=== PATIENT | female | born 1960 | race Caucasian/White ===

== ENCOUNTER 2018-02-03 05:27 | Day surgery (SDC) | payer OTHER, SELFPAY ==
--- NOTE | 2018-02-02 12:36 | EKG12_ITS ---
Test Reason : PRE OP Blood Pressure : / mmHG Vent. Rate : 081 BPM Atrial Rate : 081 BPM P-R Int : 146 ms QRS Dur : 080 ms QT Int : 394 ms P-R-T Axes : 009 038 034 degrees QTc Int : 457 ms Normal sinus rhythm Normal ECG Confirmed by SHAYNA ORTEGA, ABENA ([id number]), health editor MARISA COPELAND ([id number]) on 02/05/2018 12:50:46 PM Referred By: Nic Fuentes Confirmed By:ABENA CORRAL MD
[2018-02-02 13:13] LABS: Hematocrit 31.3 % (37-47); Hemoglobin 9.8 g/dl (12.0-15.0); Mean Corp Hgb Conc 31.3 g/gl (32-36); Mean Corpuscular Hgb 18.8 pg (27.0-32.0); Mean Corpuscular Volume 60.1 fL (81-99); Platelet Count 217 K/mm3 (150-450); RBC Distribution Width CV 15.7 % (11.6-14.6); RBC Distribution Width SD 33.8 fl (35.1-43.9); Red Blood Count 5.21 M/mm3 (4.2-5.4); White Blood Count 7.1 K/mm3 (4.4-11.0)
[2018-02-02 13:19] LABS: BUN 10 mg/dL (7-18); Creatinine, Serum 0.57 mg/dL (0.55-1.02); Glucose 97 mg/dL (74-106)
[2018-02-02 13:20] LABS: Anion Gap 7 (5-15); BUN/Creat Ratio 17.6 RATIO (10-20); Calcium,Total 8.9 mg/dL (8.5-10.1); Chloride 105 mmol/L (98-107); EST Glomerular Filtration Rate 118 mL/min (>60); Est Glom Filt Rate - Afr Amer 142 mL/min (>60); Scan Indicated on CBC? Y/N YES- FLAGS NOTED; Sodium Level 139 mmol/L (136-145)
[2018-02-03] VITALS (13 sets, daily range): BP systolic 103–134; BP diastolic 74–91; PULSE 68–100; RESP 16; TEMP 36–37.1; O2SAT 93–98; BMI 29.2
--- NOTE | 2018-02-03 07:07 | DCINST_ITS ---
Discharge Diet: No Restrictions Discharge Activity: Return to Normal Activity, May Not Drive - while you are taking narcotic pain medications. Do not drive, work with heavy equipment or sign legal documents for 24 hours after your surgery. Additional Dressing/Incision Instructions:: Sitz baths as needed for hygiene and comfort. You may remove the vaseline gauze tomorrow. High fiber diet and daily fiber supplement. Mineral oil 30cc daily for 1 week. Dibucaine ointment may be used each 2 hour as needed Allergies/Adverse Reactions: Allergies azithromycin [From Zithromax] Adverse Reaction (Verified 01/27/18 08:24) Nausea Medications to take at Discharge Multivitamins,Therapeutic [Multivitamin] 1 tab PO DAILY 04/28/16 estradiol 10 mcg vaginal tablet 10 mcg VAGINAL .COMPLEX #24 tab 10/06/17 lisinopril 10 mg tablet 10 mg PO QDAY 10/06/17 ferrous sulfate 325 mg (65 mg iron) tablet 65 mg PO DAILY tab 01/15/18 Hydrocodone Bitart/Apap 5-325 [[place] 5MG-325MG] 1 tablet PO Q6H PRN PRN 3 Days # 10 tablet 02/03/18 Metronidazole 250 mg PO TID #15 tab 02/03/18 The following prescriptions were given: Hydrocodone Bitart/Apap 5-325 [[place] 5MG-325MG] 1 tablet PO Q6H PRN PRN 3 Days # 10 tablet PRN Reason: Pain Metronidazole 250 mg PO TID #15 tab Primary Care Physician: Mylene Valdivia MD [Primary Care Provider] - Please Follow Up With: Nic Fuentes MD - [phone] When: Plan to have a follow up approximately 2 weeks after surgery.
--- NOTE | 2018-02-03 07:15 | FIST_PTH ---
PATIENT: HADLEY MUNIZ LOC: [facility] [place] U#:[id number] AGE/SX: 57/F ROOM: RE02/03/[address]: Dr. Nic Fuentes MD : [id number] BED: DIS: 02/03/2018 SPEC #: [id number] RECD: 02/03/18 10:18 STATUS: CHARISSE REYNAGAKiel #: [id number] MANUEL: 02/03/18 07:[address]: Nic Fuentes DEPT: SURGICAL PATHOLOGY RECD BY: Bob Kearney ENTERED: 02/03/18 10:44 SP TYPE: Fistula OTHR DR: Dr. Mylene Valdivia MD Tissues: A - Anal region B - HEMORRHOIDS Procedures: Surgery Specimen Level III HEADER OPERATION: Colonoscopy PRE-OP DIAGNOSIS: Left lateral fistula TISSUE SUBMITTED: A ? Fistula, B - Hemorrhoid MICROSCOPIC DIAGNOSIS A. Fistula, not further specified, excision: Squamous mucosa with associated acute and chronic inflammation and granulation and focal hyperkeratosis. B. Hemorrhoid, not further designated, hemorrhoidectomy: Submucosal vascular ectasia and thrombosis consistent with hemorrhoid. AM:layne 02/04/18 COMMENT A. The lesion may represent a fistula. Clinical correlation is suggested. MICROSCOPIC DESCRIPTION Slides are reviewed. GROSS DESCRIPTION A - Received in fixative is one container labeled with the patient's name and designated fistula. The specimen consists of four variable size pieces of pink, congested mucosal tissue measuring in aggregate 3 x 2.5 x 1 cm. No mass lesion is identified. A polypoid piece of estevez-pink soft tissue is noted at one edge measuring 0.5 x 0.2 x 0.2 cm. This area is inked black. No other mass lesion is identified. [employer] sections are submitted in one cassette. B - Received in fixative is one container labeled with the patient's name and designated hemorrhoid. The specimen consists of a piece of pink mucosal tissue measuring 3 x 1 x 1 cm. Sections reveal congested and hemorrhagic cut surfaces. The entire specimen is submitted in one cassette. / SJ:layne 02/03/18 TC:3 CPT: 49683 x2
[2018-02-03] MEDS: Clindamycin 900 MG/50 ML BAG 75 MG IV (07:16)
[2018-02-03] MEDS: Bupivacaine Mpf 0.5% 30 ML VIAL (07:51)
[2018-02-03] MEDS: Lubricating Jelly 60 GM Tube 30 GM TOPICAL (07:51)
[2018-02-03] MEDS: BUPIVACAINE LIPOSOME/PF 20 ML VIAL OPERA.SITE (08:30)
[2018-02-03] MEDS: Dibucaine 30 GM Tube 1 APPLIC (08:34)
--- NOTE | 2018-02-03 08:42 | PCM.OPRPT ---
Problem List (1) Anal fistula Status: Acute Report of Operation Date of Procedure: 02/03/18 Pre-Operative Diagnosis: Left lateral fistula in ano Post-Operative Diagnosis: Left lateral fistula in ano. Anterior anal fissure. Right posterior lateral hemorrhoid. Sigmoid and descending colon diverticulosis Surgery/Procedure Performed:: Colonoscopy. Examination under anesthesia. Anal fistulotomy. Anal fissurectomy. Surgical hemorrhoidectomy. Description of Surgical Findings:: Time out and informed consent was obtained. 57-year-old female was taken to the operating room. She was placed in a left lateral decubitus position. Throughout the procedure she underwent monitored anesthesia care. She has a family history of the father had rectal cancer. The patient's most recent colonoscopy was approximately 8 years prior. Digital rectal exam performed. There is evidence of a punctate draining site left lateral anus and there was anterior excoriation and scar tissue. There was right posterior lateral exuberant internal hemorrhoidal disease. Flexible colonoscope inserted the rectum advanced to a tortuous sigmoid colon extensively involved with diverticulosis the scope was then advanced through the transverse colon and was then nicely advanced to the cecum. Bowel prep was good. The cecum ileocecal valve was nicely achieved. The scope was then carefully withdrawn from the ascending transverse descending and sigmoid colon. There was extensive diverticulosis of the descending and sigmoid colon but I did not see any evidence of acute inflammatory change. The scope was withdrawn to the rectum retroflex there was evidence of significant internal hemorrhoid disease and hypertrophic papillae. No evidence of active bleeding. The procedure was completed with the patient tolerating it well. Impression Sigmoid and descending colon diverticulosis. Next colonoscopy recommended in 5 years because of direct family history Scope insertion time 0723. Cecum was reached at 0729. The procedure was completed at 0736 The patient was then placed prone on the operating table in the jackknife position. The perianal area was prepped with Betadine. 0.5% Marcaine was used as a local anesthetic. 2 cc of Marcaine was used. There is evidence of a punctate defect left lateral to the anus slightly anteriorly. 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 I then injected hydrogen peroxide despite multiple attempts could not detect a did precise internal site. I then used a lacrimal duct probe and again it wanted to track in a curvilinear fashion anteriorly but I could not detect the internal site. There is evidence of a very scarred anterior fissure. There was exuberant papilla in that area and there was a very large right posterior lateral internal hemorrhoid. With sharp scalpel dissection I excised the anterior tissue scarred and fixed with the fissure. I used a harmonic scalpel to excise this and the sphincter mechanism was absolutely clearly identified and protected. I perform the dissection internally so as to completely remove the fissure and then I obtained hemostasis by placing a [id number] suture of 2-0 chromic proximally. I then incised over the lacrimal duct probe and detected that there was granulation tissue that curved medially. This appeared to be superficial to the sphincter and I was able to incise and then debride that tissue sharply and with electrocautery. At this point I elected to leave that tissue open. There was a very large right posterior lateral internal hemorrhoid I did elect to treat that on this occasion. I placed an apical suture of 2-0 chromic then I used a harmonic scalpel to excise that tissue I approximated the mucosa with a 2-0 chromic. Hemostasis was nicely intact. The right posterior lateral defect was nicely closed. The anterior and anterior left lateral defect was left open. This was a significant debridement in this area. I used 20 cc of Exparel in the operative area to provide postoperative relief. I used dibucaine soaked Vaseline gauze since inserted that then placed dry cover draws externally. Sponge instrument and needle counts were reported to the surgeon for correct. Blood loss was minimal. Specimen includes the fissure as well as the granulation tissue and fistula tract. It also included the hemorrhoidal tissue. Drains none. Blood loss minimal The patient was taken to recovery room in satisfactory condition Nic Fuentes M.D., F.A.C.S.
[2018-02-03] MEDS: HYDROcodone Bitartrate/Apap 5/325 Tablet PO (11:23)
== END 2018-02-03 14:03 | disposition home or self-care (01) ==
LOC: SDC 05:29 → AC 05:30
PROVIDERS: Family Provider Family Medicine; PCP Family Medicine; Visit Provider Surgery
PROC: 0DJD8ZZ Inspection of Lower Intestinal Tract, Via Natural or Artificial Opening Endoscopic (ICD-10-PCS; CPT 45378; principal; 2018-02-03 07:00)
PROC: (CPT 45378; 2018-02-03 07:00)
DX: K60.3 Anal fistula (principal); K57.30 Diverticulosis of large intestine without perforation or abscess without bleeding; K60.2 Anal fissure, unspecified; K64.8 Other hemorrhoids; I10 Essential (primary) hypertension; D64.9 Anemia, unspecified; Z80.0 Family history of malignant neoplasm of digestive organs; Z87.891 Personal history of nicotine dependence
CPT/HCPCS: 45378; 46257; 36415; 80048; 85027; 88304; 93005; J7120; J2405

== ENCOUNTER → 2018-06-30 15:28 | Outpatient (CLI) | payer OTHER, SELFPAY | PROVIDERS: Family Provider Family Medicine; PCP Family Medicine; Visit Provider Nurse Practitioner Women's Health | DX: Z12.31 Encounter for screening mammogram for malignant neoplasm of breast (principal) | CPT/HCPCS: 77063; 77067 ==

== ENCOUNTER → 2019-02-04 10:39 | Outpatient (CLI) | payer OTHER, SELFPAY ==
[2018-06-22 14:07] VITALS: BMI 30.4
[2019-02-04 13:00] LABS: Anion Gap 5 (5-15); BUN 12 mg/dL (7-18); BUN/Creat Ratio 19.1 RATIO (10-20); Calcium,Total 9.2 mg/dL (8.5-10.1); Chloride 110 mmol/L (98-107); Cholesterol 250 mg/dL (200); Creatinine, Serum 0.63 mg/dL (0.55-1.02); EST Glomerular Filtration Rate 104 mL/min (>60); Est Glom Filt Rate - Afr Amer 126 mL/min (>60); Glucose 89 mg/dL (74-106); High Density Lipoprotein 49 mg/dL; Potassium 4.2 mmol/L (3.5-5.1); Sodium Level 144 mmol/L (136-145); Triglycerides 135 mg/dL; Very Low Density Lipoprotein 27 mg/dL (5-40)
== END ==
PROVIDERS: Family Provider Family Medicine; PCP Family Medicine; Referring Provider Family Medicine; Visit Provider Family Medicine
DX: I10 Essential (primary) hypertension (principal)
CPT/HCPCS: 36415; 80048; 80061

== ENCOUNTER → 2019-07-06 12:55 | Outpatient (CLI) | payer OTHER, SELFPAY ==
[2019-06-23 08:22] VITALS: BMI 30.4
--- NOTE | 2019-07-06 13:01 | BI_ITS ---
MAMMOGRAPHY - BILATERAL SCREENING REASON FOR EXAM: Female, 58 years old. Routine annual screening examination. PERTINENT HISTORY: Non-contributory. TECHNIQUE: Digital bilateral breast lizandro (3D mammographic acquisition) in the CC and MLO projections. 2-D mediolateral oblique (MLO) and craniocaudad (CC) views of both breasts were obtained. CAD: Full Field Digital Mammography with Computer Added Detection was performed. COMPARISON: Comparison is made with prior study dated June 30, 2018. FINDINGS: Breast Composition: There are scattered areas of fibroglandular density. There are no dominant masses or suspicious calcifications. No other significant abnormalities are identified. There has been no significant change since the prior study. BI/SCREEN MAMM (CAD) W/LIZANDRO BILAT IMPRESSION: Stable bilateral screening mammogram. Yearly follow-up mammogram recommended. (A) ASSESSMENT CATEGORY: BIRADS Category 1: Negative. A letter regarding these results will be sent to the patient by the facility within 30 days. Approximately 10% of breast cancers are not detected by mammography. A normal mammogram should not delay biopsy of a clinically suspicious abnormality. [id number] Electronically Signed: Sabas Barton, at 10:39 EDT , Service support ,
== END ==
PROVIDERS: Family Provider Family Medicine; PCP Family Medicine; Referring Provider Nurse Practitioner Women's Health; Visit Provider Nurse Practitioner Women's Health
DX: Z12.31 Encounter for screening mammogram for malignant neoplasm of breast (principal)
CPT/HCPCS: 77063; 77067

== ENCOUNTER → 2020-07-05 12:52 | Outpatient (CLI) | payer OTHER, SELFPAY ==
[2020-07-05 10:22] VITALS: BMI 30.4
[2020-07-09 08:02] LABS: HPV APTIMA, High Risk Negative (Negative)
== END ==
PROVIDERS: PCP Family Medicine; Referring Provider Nurse Practitioner Women's Health; Visit Provider Nurse Practitioner Women's Health
DX: Z12.4 Encounter for screening for malignant neoplasm of cervix (principal)
CPT/HCPCS: 87624; 88175; G0145

== ENCOUNTER → 2020-07-27 10:06 | Outpatient (CLI) | payer OTHER, SELFPAY ==
[2020-07-05 10:22] VITALS: BMI 30.4
[2020-07-27 12:46] LABS: Anion Gap 5 (5-15); BUN 11 mg/dL (7-18); BUN/Creat Ratio 16.6 RATIO (10-20); Calcium,Total 9.6 mg/dL (8.5-10.1); Chloride 105 mmol/L (98-107); Cholesterol 180 mg/dL (200); Creatinine, Serum 0.66 mg/dL (0.55-1.02); EST Glomerular Filtration Rate 97 mL/min (>60); Est Glom Filt Rate - Afr Amer 118 mL/min (>60); Glucose 97 mg/dL (74-106); High Density Lipoprotein 54 mg/dL; Potassium 3.8 mmol/L (3.5-5.1); Sodium Level 138 mmol/L (136-145); Triglycerides 106 mg/dL; Very Low Density Lipoprotein 21 mg/dL (5-40)
== END ==
PROVIDERS: PCP Family Medicine; Referring Provider Family Medicine; Visit Provider Family Medicine
DX: I10 Essential (primary) hypertension (principal)
CPT/HCPCS: 36415; 80048; 80061

== ENCOUNTER → 2020-08-02 07:53 | Outpatient (CLI) | payer OTHER, SELFPAY ==
[2020-07-05 10:22] VITALS: BMI 30.4
--- NOTE | 2020-08-02 07:53 | BI_ITS ---
MAMMOGRAPHY - BILATERAL SCREENING REASON FOR EXAM: Female, 59 years old. Routine annual screening examination. PERTINENT HISTORY: Non-contributory. TECHNIQUE: Digital bilateral breast lizandro (3D mammographic acquisition) in the CC and MLO projections. 2-D mediolateral oblique (MLO) and craniocaudad (CC) views of both breasts were obtained. CAD: Full Field Digital Mammography with Computer Added Detection was performed. COMPARISON: Comparison is made with prior study dated 07/06/2019 and 06/30/2018. FINDINGS: Breast Composition: There are scattered areas of fibroglandular density. There are no dominant masses or suspicious calcifications. No other significant abnormalities are identified. There has been no significant change since the prior study. BI/SCREEN MAMM (CAD) W/LIZANDRO BILAT IMPRESSION: Stable bilateral screening mammogram. Yearly follow-up mammogram recommended. (A) ASSESSMENT CATEGORY: BIRADS Category 1: Negative. A letter regarding these results will be sent to the patient by the facility within 30 days. Approximately 10% of breast cancers are not detected by mammography. A normal mammogram should not delay biopsy of a clinically suspicious abnormality. [id number] Electronically Signed: Sabas Barton, at 9:30 EDT , Service support ,
== END ==
PROVIDERS: PCP Family Medicine; Referring Provider Nurse Practitioner Women's Health; Visit Provider Nurse Practitioner Women's Health
DX: Z12.31 Encounter for screening mammogram for malignant neoplasm of breast (principal)
CPT/HCPCS: 77063; 77067

== ENCOUNTER → 2020-12-27 12:04 | Outpatient (CLI) | payer OTHER, SELFPAY ==
[2020-07-05 10:22] VITALS: BMI 30.4
[2020-12-27 16:06] LABS: ALB/GLOB Ratio 1.2 RATIO (0.9-2.4); AST(SGOT) 17 U/L (15-37); Alanine Aminotransfer ALT/SGPT 27 U/L (13-56); Albumin, Serum 3.9 g/dL (3.2-5.0); Alkaline Phosphatase 64 U/L (45-117); Anion Gap 8 (5-15); BUN 9 mg/dL (7-18); BUN/Creat Ratio 13.5 RATIO (10-20); Calcium,Total 9.1 mg/dL (8.5-10.1); Chloride 106 mmol/L (98-107); Creatinine, Serum 0.67 mg/dL (0.55-1.02); EST Glomerular Filtration Rate 97 mL/min (>60); Est Glom Filt Rate - Afr Amer 117 mL/min (>60); Globulin 3.3 g/dL (2.2-4.2); Glucose 97 mg/dL (74-106); Potassium 3.3 mmol/L (3.5-5.1); Protein, Total 7.2 g/dL (6.4-8.2); Sodium Level 139 mmol/L (136-145)
[2021-01-01 15:28] LABS: Fats, Neutral Normal (.); Fats, Total Normal (.)
== END ==
PROVIDERS: PCP Family Medicine; Referring Provider Family Medicine; Visit Provider Family Medicine
DX: R19.7 Diarrhea, unspecified (principal)
CPT/HCPCS: 36415; 80053; 82705; 83630; 83735; 87177; 87209; 87493; 87506

== ENCOUNTER → 2021-08-22 08:25 | Outpatient (CLI) | payer OTHER, SELFPAY ==
--- NOTE | 2021-08-22 08:28 | BI_ITS ---
MAMMOGRAPHY - BILATERAL SCREENING REASON FOR EXAM: Female, 60 years old. Routine annual screening examination. PERTINENT HISTORY: Non-contributory. TECHNIQUE: Digital bilateral breast lizandro (3D mammographic acquisition) in the CC and MLO projections. 2-D mediolateral oblique (MLO) and craniocaudad (CC) views of both breasts were obtained. CAD: Full Field Digital Mammography with Computer Added Detection was performed. COMPARISON: Comparison is made with prior study 08/02/2020 and 07/06/2019. FINDINGS: Breast Composition: There are scattered areas of fibroglandular density. I suspect a 6.1 mm x 6.5 mm nodular density in the slightly inferior lateral aspect of the left breast. Correlation with ultrasound is recommended No other significant abnormalities are identified. BI/SCRN MAMM (CAD)W/LIZANDRO BILAT IMPRESSION: Findings suggestive of a 6.1 mm x 6.5 mm nodule in the slightly inferior lateral aspect of the right breast. Correlation with ultrasound is recommended. ASSESSMENT CATEGORY: BIRADS Category 0: Incomplete. Need additional imaging evaluation. A letter regarding these results will be sent to the patient by the facility within 30 days. Approximately 10% of breast cancers are not detected by mammography. A normal mammogram should not delay biopsy of a clinically suspicious abnormality. [id number] Electronically Signed: Sabas Barton MD at 9:17 EDT , Service support ,
== END ==
PROVIDERS: PCP Family Medicine; Referring Provider Nurse Practitioner Women's Health; Visit Provider Nurse Practitioner Women's Health
DX: Z12.31 Encounter for screening mammogram for malignant neoplasm of breast (principal)
CPT/HCPCS: 77063; 77067

== ENCOUNTER → 2021-08-27 08:56 | Outpatient (CLI) | payer OTHER, SELFPAY ==
--- NOTE | 2021-08-27 08:59 | BI_ITS ---
MAMMOGRAPHY - BILATERAL DIAGNOSTIC REASON FOR EXAM: Female, 60 years old. Abnormal screening mammogram. PERTINENT HISTORY: Non-contributory. TECHNIQUE: Compression spot views of the left breast in the mediolateral oblique and craniocaudad views were obtained. CAD: Full Field Digital Mammography with Computer Added Detection was performed. COMPARISON: Comparison is made with prior mammogram dated 08/22/2021. FINDINGS: Breast Composition: There are scattered areas of fibroglandular density. The previously seen 6.1 mm x 6.5 mm nodular density in the slightly inferior lateral aspect of the left breast is not seen at this time. This most likely represents superimposition of tissue. No other significant abnormalities are identified. BI/DIAG MAMM W/CAD, UNILAT IMPRESSION: Negative diagnostic mammogram. Yearly followup mammogram recommended. (A) ASSESSMENT CATEGORY: BIRADS Category 2: Benign. A letter regarding these results will be sent to the patient by the facility within 30 days. Approximately 10% of breast cancers are not detected by mammography. A normal mammogram should not delay biopsy of a clinically suspicious abnormality. Electronically Signed: Sabas Barton MD at 11:04 EDT , Service support ,
== END ==
PROVIDERS: PCP Family Medicine; Referring Provider Nurse Practitioner Women's Health; Visit Provider Nurse Practitioner Women's Health
DX: R92.2 Inconclusive mammogram (principal)
CPT/HCPCS: 77065

== ENCOUNTER 2021-12-20 10:37 | Outpatient (CLI) | payer OTHER, SELFPAY ==
[2021-12-20 11:56] LABS: Absolute Neutrophil Count 5.3 X10^3/uL (2.0-7.7); Basophil# 0.05 X10^3/uL; Basophil% 0.6 % (0-1); Eosinophil# 0.14 X10^3/uL; Eosinophils% 1.7 % (0-5); Hematocrit 35.5 % (37-47); Hemoglobin 11.2 g/dL (12.0-15.0); Lymphocyte % 25.7 % (19-41); Mean Corp Hgb Conc 31.5 g/dL (32-36); Mean Corpuscular Hgb 19.1 pg (27.0-32.0); Mean Corpuscular Volume 60.6 fL (81-99); Mean Platelet Vol. 10.9 fl (6.2-12.0); Monocyte# 0.57 X10^3/uL; NRBC Flagged by Analyzer 0 % (0-5); Neutrophil # 5.29 X10^3/uL (2.7-7.7); Neutrophil % 64.6 % (47-70); Platelet Count 285 K/mm3 (150-450); RBC Distribution Width CV 15.7 % (11.6-14.6); RBC Distribution Width SD 32.1 fl (35.1-43.9); Red Blood Count 5.86 M/mm3 (4.2-5.4); White Blood Count 8.2 K/mm3 (4.4-11.0)
[2021-12-20 12:39] LABS: AST(SGOT) 19 U/L (15-37); Alanine Aminotransfer ALT/SGPT 29 U/L (13-56); Anion Gap 6 (5-15); BUN 14 mg/dL (7-18); BUN/Creat Ratio 21.8 RATIO (10-20); Calcium,Total 9.1 mg/dL (8.5-10.1); Chloride 107 mmol/L (98-107); Cholesterol 194 mg/dL (200); Creatinine, Serum 0.64 mg/dL (0.55-1.02); EST Glomerular Filtration Rate 101 mL/min (>60); Est Glom Filt Rate - Afr Amer 122 mL/min (>60); Glucose 92 mg/dL (74-106); High Density Lipoprotein 56 mg/dL; Sodium Level 140 mmol/L (136-145); Triglycerides 140 mg/dL; Very Low Density Lipoprotein 28 mg/dL (5-40)
[2021-12-20 12:39] LABS: Thyroid Stim Hormone (TSH) 1.21 uIU/mL (0.358-3.74)
== END 2021-12-20 23:59 | disposition home or self-care (01) ==
LOC: MFPLAB 10:40
PROVIDERS: Nurse Practitioner Women's Health; PCP Family Medicine; Referring Provider Family Medicine; Visit Provider Family Medicine
DX: E78.49 Other hyperlipidemia (principal); I10 Essential (primary) hypertension
CPT/HCPCS: 36415; 80048; 80061; 84443; 84450; 84460; 85025

== ENCOUNTER → 2022-07-14 | Outpatient (CLI) | payer OTHER, SELFPAY ==
[2022-07-14 15:27] LABS: Absolute Lymphocyte Count 1.51 X10^3/uL (0.83-4.51); Absolute Neutrophil Count 3.6 X10^3/uL (2.0-7.7); Basophil# 0.04 X10^3/uL; Basophil% 0.7 % (0-1); Eosinophils% 1.7 % (0-5); Hematocrit 34.4 % (37-47); Hemoglobin 10.4 g/dL (12.0-15.0); Lymphocyte # 1.51 X10^3/ul (0.83-4.51); Lymphocyte % 26.3 % (19-41); Mean Corp Hgb Conc 30.2 g/dL (32-36); Mean Corpuscular Hgb 19.1 pg (27.0-32.0); Mean Corpuscular Volume 63.1 fL (81-99); Mean Platelet Vol. 10.4 fl (6.2-12.0); Monocyte# 0.44 X10^3/uL; Monocyte% 7.7 % (0-10); NRBC Flagged by Analyzer 0 % (0-5); Neutrophil % 62.6 % (47-70); Platelet Count 265 K/mm3 (150-450); RBC Distribution Width CV 17.2 % (11.6-14.6); RBC Distribution Width SD 36.1 fl (35.1-43.9); Red Blood Count 5.45 M/mm3 (4.2-5.4); White Blood Count 5.8 K/mm3 (4.4-11.0)
[2022-07-14 20:22] LABS: Ferritin 425 ng/mL (8-252); Iron 163 ug/dL (50-170); Iron Binding Capacity,Total 327 ug/dL (250-450)
== END | disposition home or self-care (01) ==
LOC: MFPLAB 10:16
PROVIDERS: PCP Family Medicine; Visit Provider Family Medicine
DX: D50.9 Iron deficiency anemia, unspecified (principal)
CPT/HCPCS: 80048; 80061; 82728; 83540; 83550; 84450; 84460; 85025

== ENCOUNTER → 2023-01-05 | Outpatient (CLI) | payer OTHER, SELFPAY ==
--- NOTE | 2023-01-05 07:31 | BI_ITS ---
MAMMOGRAPHY - BILATERAL SCREENING REASON FOR EXAM: Female, 62 years old. Routine annual screening examination. PERTINENT HISTORY: Non-contributory. TECHNIQUE: Digital bilateral breast lizandro (3D mammographic acquisition) in the CC and MLO projections. 2-D mediolateral oblique (MLO) and craniocaudad (CC) views of both breasts were obtained. CAD: Full Field Digital Mammography with Computer Added Detection was performed. COMPARISON: Comparison is made with prior study August 27, 2021 and August 22, 2021. FINDINGS: Breast Composition: There are scattered areas of fibroglandular density. There are no dominant masses or suspicious calcifications. No other significant abnormalities are identified. There has been no significant change since the prior study. BI/SCRN MAMM (CAD)W/LIZANDRO BILAT IMPRESSION: Stable bilateral screening mammogram. Yearly follow-up mammogram recommended. (A) ASSESSMENT CATEGORY: BIRADS Category 1: Negative. A letter regarding these results will be sent to the patient by the facility within 30 days. Approximately 10% of breast cancers are not detected by mammography. A normal mammogram should not delay biopsy of a clinically suspicious abnormality. [id number] Electronically Signed: Sabas Barton MD at 9:10 EST ,
== END | disposition home or self-care (01) ==
LOC: OPBI 07:28
PROVIDERS: PCP Family Medicine; Visit Provider Nurse Practitioner Women's Health
DX: Z12.31 Encounter for screening mammogram for malignant neoplasm of breast (principal)
CPT/HCPCS: 77063; 77067

== ENCOUNTER → 2023-08-21 | Outpatient (CLI) | payer OTHER, SELFPAY ==
[2023-08-21 18:24] LABS: AST(SGOT) 19 U/L (15-37); Alanine Aminotransfer ALT/SGPT 34 U/L (13-56); Anion Gap 7 (5-15); BUN 15 mg/dL (7-18); BUN/Creat Ratio 23.2 RATIO (10-20); Calcium,Total 8.9 mg/dL (8.5-10.1); Chloride 105 mmol/L (98-107); Cholesterol 172 mg/dL (200); Creatinine, Serum 0.65 mg/dL (0.55-1.02); EST Glomerular Filtration Rate 99 mL/min (>60); Est Glom Filt Rate - Afr Amer 120 mL/min (>60); Glucose 100 mg/dL (74-106); High Density Lipoprotein 56 mg/dL; Potassium 3.7 mmol/L (3.5-5.1); Sodium Level 138 mmol/L (136-145); Triglycerides 228 mg/dL; Very Low Density Lipoprotein 46 mg/dL (5-40)
== END | disposition home or self-care (01) ==
LOC: MFPLAB 15:04
PROVIDERS: PCP Family Medicine; Visit Provider Family Medicine
DX: I10 Essential (primary) hypertension (principal); E78.5 Hyperlipidemia, unspecified
CPT/HCPCS: 36415; 80048; 80061; 84450; 84460

== ENCOUNTER → 2024-01-07 | Outpatient (CLI) | payer OTHER, SELFPAY ==
--- NOTE | 2024-01-07 07:22 | BI_ITS ---
MAMMOGRAPHY - BILATERAL SCREENING 3-D TOMOSYNTHESIS REASON FOR EXAM: Female, 63 years old. Screening for breast cancer PERTINENT HISTORY: No significant family history. TECHNIQUE: 2-D mammograms and 3-D Tomosynthesis of the breast (s) were performed. CAD was performed. COMPARISON: 01/05/2023 FINDINGS: The breast composition is composed of scattered fibroglandular density. Scattered benign calcifications are seen. No dense spiculated masses or suspicious microcalcifications are identified. No architectural distortion is identified. There is no skin thickening or retraction. There has been no significant change since the prior study. BI/SCRN MAMM (CAD)W/LIZANDRO BILAT IMPRESSION: No mammographic signs of malignancy. Routine yearly mammograms recommended. ASSESSMENT CATEGORY: BIRADS Category 1: Negative. A letter regarding these results will be sent to the patient by the facility within 30 days. FOLLOW UP RECOMMENDATION: Yearly follow up mammogram recommended. (A) Approximately 10% of breast cancers are not detected by mammography. A normal mammogram should not delay biopsy of a clinically suspicious abnormality. Electronically Signed: Bob Vizcaino MD at 14:07 EST ,
--- OUTSIDE RECORDS SUMMARY | 2024-01-07 07:26 | XMS RPT_ITS | CCD ---
Author Name Unknown Address [address] [facility] [address] [place] [address] Organization [facility] Care Team Providers Care Director Wholesale Name Role Phone Mylene Frias Primary Care Provider [phone] MYLENE FRIAS Primary Care Unavailable ANDRES GALINDO Referring Unavailable ANDRES GALINDO Attending Unavailable MYLENE FRIAS Referring Unavailable MYLENE FRIAS Primary Care Unavailable MYLENE FRIAS Primary Care Unavailable Allergies Allergy Classification Reported Allergen(s) Allergy Type Date of Onset Reaction(s) Facility (8 sources) Azithromycin; Translations: [AZITHROMYCIN] Drug Allergy 6 [facility] Work Phone: (8 sources) Cat; Translations: [CATS] Propensity to adverse reactions [address] [place] [address] Work Phone: (8 sources) Dog; Translations: [DOGS] Propensity to adverse reactions 6 [facility] Work Phone: (7 sources) dustmites [Other] Propensity to adverse reactions 6 [facility] Work Phone: (1 source) OTHER; Translations: [OTHER] Propensity to adverse reactions (disorder) [address] [facility] Repository Medications Completed/Discontinued Medications Medication Drug Class(es) Dates Sig (Normalized) Sig (Original) atorvastatin 20 mg oral tablet (6 sources) HMG-CoA Reductase Inhibitor Start: 11-18-2019 take 1 tablet by mouth once daily atorvastatin (LIPITOR) 20 mg tablet Take 20 mg by mouth once daily. 0 11/18/2019 Active Problems Active Problems Problem Classification Problem Date Documented Da te Episodic/Chronic Deficiency and other anemia (1 source) Alpha thalassemia; Translations: [Alpha thalassemia] Chronic Deficiency and other anemia (1 source) Iron deficiency anemia; Translations: [Iron deficiency anemia, unspecified] Episodic Deficiency and other anemia (2 sources) Microcytic anemia; Translations: [Iron deficiency anemia, unspecified] Episodic Deficiency and other anemia (2 sources) Iron deficiency anemia, unspecified; Translations: [Microcytic anemia] Onset: 10-06-2022 Episodic Other gastrointestinal disorders (7 sources) Irritable bowel syndrome; Translations: [Irritable bowel syndrome without diarrhea] Onset: 11-15-2012 11-15-2012 Chronic Past or Other Problems Problem Classification Problem Date Documented Da te Episodic/Chronic Residual codes; unclassified (7 sources) Abnormal cytology findings; Translations: [Other nonspecific abnormal findings] Onset: 11-15-2012 02-03-2017 Episodic Results Test Name Value Interpretation Reference Range Facil ity Vital Signs Date Time Vital Sign Value Performing Clinician Faci lity 10-06-2022 15:36-0500 Body height 166.5 cm Andres [employer] Work Phone: [facility] 10-06-2022 15:36-0500 Body temperature 99.5 [degF] Andres [employer] Work Phone: [facility] 10-06-2022 15:36-0500 Body weight 82.78 kg Andres [employer] Work Phone: [facility] 10-06-2022 15:36-0500 Diastolic blood pressure 97 mm[Hg] Andres [employer] Work Phone: [facility] 10-06-2022 15:36-0500 Heart rate 102 /min Andres [employer] Work Phone: [facility] 10-06-2022 15:36-0500 SaO2% (BldA) [Mass fraction] 97 % Andres [employer] Work Phone: [facility] 10-06-2022 15:36-0500 Systolic blood pressure 153 mm[Hg] Andres [employer] Work Phone: [facility] Encounters Encounter Date Encounter Type Care Provider Facility Start: 01-15-2023 End: 01-16-2023 ambulatory MYLENE FRIAS Facility:[facility] Start: 01-14-2023 Orders Only Andres Galindo D O Work Phone: Hematology/Oncology Procedures Date Procedure Procedure Detail Performing Clinician Start: 02-03-2017 Mammography Andres Galindo DO Work Phone: Start: 11-05-2009 Colonoscopy Andres Galindo DO Work Phone: Plan of Treatment Date Care Activity Detail Author Start: 10-06-2025 DIABETES SCREEN DIABETES SCREEN [facility] Start: 01-15-2023 End: 03-17-2023 CBC W Auto Differential panel - Blood CBC + DIFF Lab STAT Microcytic anemia Expected: 01/15/2023, Expires: 03/17/2023 [facility] Work Phone: Immunizations Immunization Date Immunization Notes Care Provider Lauryn ahumada 11-15-2012 tetanus toxoid, redu bertin diphtheria toxoid, and acellular pertussis vaccine, adsorbed Andres Galindo DO Work Phone: [facility] Work Phone: Payers Date Payer Category Payer Unknown [id number] 2019 Unknown [id number] Social History Date Type Detail Facility Start: 10-02-2011 Tobacco smoking stat us LAIS Ex-smoker [facility] History of tobacco use Current smoker [facility] History of tobacco use Cigarette Smoker C [facility] Start: 10-02-2011 Cigarettes smoked cu rrent (pack per day) - Reported 1 [facility] Start: 10-02-2011 Tobacco use and exposure Smoke less tobacco non-user [facility] Start: 02-03-2017 End: 10-06-2022 Alcohol intake Current drinker of alcohol (finding) [facility] Start: 1960 Sex Assigned At Not on file C [facility] Note 10-10-2022 Telephone Encounter - Raquel Shook LPN - 10/10/2022 9:17 AM ESTTelephone Encounter - Andres Galindo DO - 10/10/2022 8:27 AM EST Note Date & Type Note Facility 10-10-2022 Miscellaneous Notes Formattin g of this note might be different from the original. Patient is aware of all information. Per Dr. Galindo- patient has beta thalassemia minor and no further testing is needed. Patient will follow up as scheduled. Raquel Shook LPN Can let her know the initial testing which was a screening test did not identify the type of thalassemia she has so I would like her to come back for additional lab work for more directed gene testing for alpha thalassemia. I filed the order under a separate orders encounter. Results may take up to 2 weeks. Andres Galindo DO documented in this encounter [facility] Note 10-07-2022 Telephone Encounter - Cary Carpio LPN - 10/07/2022 7:59 AM ESTTelephone Encounter - Andres Galindo DO - 10/06/2022 5:21 PM EST Note Date & Type Note Facility 10-07-2022 Miscellaneous Notes Formattin g of this note might be different from the original. Spoke with pt. Given information concerning Folic acid , informed rx sent to pharmacy, take 1 daily. Pt. Voiced understanding. Cary Carpio LPN Can let her know I forgot to mention to her during her visit today to start a folic acid supplement, 1 mg daily ongoing. That will help support her bone marrow since her production of red blood cells is increased with thalassemia. I will send Rx for it but it may be less expensive [id number]. Andres Galindo DO documented in this encounter [facility] Progress note 10-06-2022 Note Date & Type Note Facility 10-06-2022 Note HNO ID: [id number] Author: Andres Galindo DO Service: ? Author Type: Physician Type: Progress Notes Filed: 10/06/2022 5:20 PM Note Text: Patient referred by Dr. Frias for anemia. The impression and plan will be communicated by way of the shared electronic record or faxed under separate cover letter. HPI: The patient is a 61-year-old female with a past medical history significant for hypertension, hyperlipidemia, reflux, and anemia. Patient has been on an oral iron supplement. Recent CBC from 07/14/2022 demonstrated a white count of 5800. Differential unremarkable. Mild left shift with 1% immature granulocytes but remainder of differential normal. Hemoglobin 10.4 g/dL with hematocrit of 34.4%. MCV was 63 fL with MCH of 19.1 pg. Platelet count 265,000. Serum iron was 163 mcg/dL. Ferritin was 425 ng/mL. TIBC was 327 mcg/dL. Review of [facility] systems electronic record indicates patient has microcytic anemia dating to at least May 2016. At that time her MCV was 58.9 fL. Diagnosed with thalassemia approximately 27 years ago when with first child. LMP ~5 years ago. She takes iron supplement twice daily longstanding. No nausea. Chronic reflux. Can get diarrhea if off iron for some time and then restarts. I feel great. No dyspnea with exertion. No fatigue. PAST MEDICAL HISTORY Diagnosis Date Abnormal Papanicolaou smear of vagina and vaginal HPV HTN (hypertension) Hypercholesteremia Iron deficiency anemia Irritable bowel syndrome PAST SURGICAL HISTORY Procedure Laterality Date APPENDECTOMY COLONOSCOPY 03/2004 COLONOSCOPY FLX DX W/COLLJ SPEC WHEN PFRMD 11/2009 Colonoscopy FOOT SURGERY HX 2016 PAST SURGICAL HISTORY OF removal of an ovarian cyst REMOVAL OF ANAL FISSURE 2018 ALLERGIES Allergen Reactions Cats Dogs Dustmites [Other] Zithromax [Azithrom* Current Outpatient Medications Medication Sig atorvastatin (LIPITOR) 20 mg tablet Take 20 mg by mouth once daily. esomeprazole (NEXIUM) 20 mg capsule Take 20 mg by mouth once daily. YUVAFEM 10 mcg vaginal tablet INSERT 1 TABLET VAGINALLY TWICE WEEKLY ferrous sulfate 325 mg (65 mg iron) tablet Take 65 mg by mouth once daily. venlafaxine (EFFEXOR) 75 mg tablet Take 75 mg by mouth once daily. lisinopril (ZESTRIL, PRINIVIL) 10 mg tablet Take 10 mg by mouth once daily. MULTIVITAMIN/FERROUS SULFATE (ONE DAILY MULTIVITAMIN-IRON ORAL) Take by mouth. No current facility-administered medications for this visit. Social History Tobacco Use Smoking status: Former Packs/day: 1.00 Years: 7.00 Pack years: 7.00 Types: Cigarettes Smokeless tobacco: Never Tobacco comments: QUIT 18 YRS. 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 Family history: No known family history of thalassemia. ROS: Constitutional: Denies episodes of fever and night sweats. Normal appetite. Neuro: Denies HENRY, vertigo, dizziness and imbalance. Denies symptoms of neuropathy. HEENT: No recent change in voice, vision or hearing. Resp: Denies cough, wheeze and hemoptysis. Denies shortness of breath at rest. CVS: Denies exertional chest pain, PND, orthopnea and LE edema. GI: Denies dysgeusia. Denies symptoms of stomatitis. Denies dysphagia and odynophagia. Denies reflux, n/v, change in bowel habits and abdominal pain. : Denies dysuria or gross hematuria. No symptoms of bladder outlet obstruction. Endo: Denies hot flashes. Denies polyuria and polydipsia. Denies heat and cold intolerance. Musculoskeletal: Denies bone, back, joint and muscular pain. Derm: Denies rash. Denies jaundice and diffuse pruritis. Heme: Denies unusual bleeding and unexplained bruising. Psych: Normal mood. PHYSICAL EXAM: Vitals: Blood pressure 153/97, pulse 102, temperature 37.5 ?C (99.5 ?F), height 166.5 cm (5' 5.55 ), weight 82.8 kg (182 lb 8 oz), last menstrual period 01/21/2017, SpO2 97 %. Well-appearing and in no acute distress. EYES: Sclerae are anicteric bilaterally. LYMPHATIC: There is no palpable cervical, supraclavicular or axillary adenopathy. RESPIRATORY: Inspiratory breath sounds are of normal intensity in all engel. No rales, wheezes or rhonchi. CARDIOVASCULAR: Rhythm is regular. Normal intensity S1/S2. ABDOMEN: The abdomen is nondistended. No organomegaly. No tenderness. Extremities: No swelling or edema. SKIN: No jaundice or rash. No petechiae. NEUROLOGIC: muck operator II-XII are grossly intact. No focal motor weakness. MUSCULOSKELETAL: No muscle wasting. ASSESSMENT/PLAN: (D50.9) Microcytic anemia (primary encounter diagnosis) Assessment: -Previous diagnosis of thalassemia. Type unknown but potentially beta Thal minor. -Discussed obtaining hemoglobin electrophoresis so we know the type of thalassemia she has/ -Mild iron overload--possible (more content not included)... [facility] History of Present illness Narrative 10-06-2022 Andres Galindo, DO - 10/06/2022 4:04 PM EST Note Date & Type Note Facility 10-06-2022 History of Presen t illness Narrative Patient referred by Dr. Frias for anemia. The impression and plan will be communicated by way of the shared electronic record or faxed under separate cover letter. HPI: The patient is a 61-year-old female with a past medical history significant for hypertension, hyperlipidemia, reflux, and anemia. Patient has been on an oral iron supplement. Recent CBC from 07/14/2022 demonstrated a white count of 5800. Differential unremarkable. Mild left shift with 1% immature granulocytes but remainder of differential normal. Hemoglobin 10.4 g/dL with hematocrit of 34.4%. MCV was 63 fL with MCH of 19.1 pg. Platelet count 265,000. Serum iron was 163 mcg/dL. Ferritin was 425 ng/mL. TIBC was 327 mcg/dL. Review of [facility] systems electronic record indicates patient has microcytic anemia dating to at least May 2016. At that time her MCV was 58.9 fL. Diagnosed with thalassemia approximately 27 years ago when with first child. LMP ~5 years ago. She takes iron supplement twice daily longstanding. No nausea. Chronic reflux. Can get diarrhea if off iron for some time and then restarts. I feel great. No dyspnea with exertion. No fatigue. PAST MEDICAL HISTORY Diagnosis Date Abnormal Papanicolaou smear of vagina and vaginal HPV HTN (hypertension) Hypercholesteremia Iron deficiency anemia Irritable bowel syndrome PAST SURGICAL HISTORY Procedure Laterality Date APPENDECTOMY COLONOSCOPY 03/2004 COLONOSCOPY FLX DX W/COLLJ SPEC WHEN PFRMD 11/2009 Colonoscopy FOOT SURGERY HX 2016 PAST SURGICAL HISTORY OF removal of an ovarian cyst REMOVAL OF ANAL FISSURE 2018 ALLERGIES Allergen Reactions Cats Dogs Dustmites [Other] Zithromax [Azithrom* Current Outpatient Medications Medication Sig atorvastatin (LIPITOR) 20 mg tablet Take 20 mg by mouth once daily. esomeprazole (NEXIUM) 20 mg capsule Take 20 mg by mouth once daily. YUVAFEM 10 mcg vaginal tablet INSERT 1 TABLET VAGINALLY TWICE WEEKLY ferrous sulfate 325 mg (65 mg iron) tablet Take 65 mg by mouth once daily. venlafaxine (EFFEXOR) 75 mg tablet Take 75 mg by mouth once daily. lisinopril (ZESTRIL, PRINIVIL) 10 mg tablet Take 10 mg by mouth once daily. MULTIVITAMIN/FERROUS SULFATE (ONE DAILY MULTIVITAMIN-IRON ORAL) Take by mouth. No current facility-administered medications for this visit. Social History Tobacco Use Smoking status: Former Packs/day: 1.00 Years: 7.00 Pack years: 7.00 Types: Cigarettes Smokeless tobacco: Never Tobacco comments: QUIT 18 YRS. 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 Family history: No known family history of thalassemia. ROS: Constitutional: Denies episodes of fever and night sweats. Normal appetite. Neuro: Denies HENRY, vertigo, dizziness and imbalance. Denies symptoms of neuropathy. HEENT: No recent change in voice, vision or hearing. Resp: Denies cough, wheeze and hemoptysis. Denies shortness of breath at rest. CVS: Denies exertional chest pain, PND, orthopnea and LE edema. GI: Denies dysgeusia. Denies symptoms of stomatitis. Denies dysphagia and odynophagia. Denies reflux, n/v, change in bowel habits and abdominal pain. : Denies dysuria or gross hematuria. No symptoms of bladder outlet obstruction. Endo: Denies hot flashes. Denies polyuria and polydipsia. Denies heat and cold intolerance. Musculoskeletal: Denies bone, back, joint and muscular pain. Derm: Denies rash. Denies jaundice and diffuse pruritis. Heme: Denies unusual bleeding and unexplained bruising. Psych: Normal mood. PHYSICAL EXAM: Vitals: Blood pressure 153/97, pulse 102, temperature 37.5 C (99.5 F), height 166.5 cm (5' 5.55 ), weight 82.8 kg (182 lb 8 oz), last menstrual period 01/21/2017, SpO2 97 %. Well-appearing and in no acute distress. EYES: Sclerae are anicteric bilaterally. LYMPHATIC: There is no palpable cervical, supraclavicular or axillary adenopathy. RESPIRATORY: Inspiratory breath sounds are of normal intensity in all engel. No rales, wheezes or rhonchi. CARDIOVASCULAR: Rhythm is regular. Normal intensity S1/S2. ABDOMEN: The abdomen is nondistended. No organomegaly. No tenderness. Extremities: No swelling or edema. SKIN: No jaundice or rash. No petechiae. NEUROLOGIC: muck operator II-XII are grossly intact. No focal motor weakness. MUSCULOSKELETAL: No muscle wasting. ASSESSMENT/PLAN: (D50.9) Microcytic anemia (primary encounter diagnosis) Assessment: -Previous diagnosis of thalassemia. Type unknown but potentially beta Thal minor. -Discussed obtaining hemoglobin electrophoresis so we know the type of thalassemia she has/ -Mild iron overload--possible underlying hereditary hemochromatosis (doubt) or possibly ineffective erythropoiesis or ongoing oral iron supplementation. -Reviewed previous lab testing with her. Plan: -Stop supplemental iron. -Folic acid supplementation. -Hemoglobin electrophoresis. -CBC and iron studies mainly to repeat ferritin today. -CBC/iron studies (to assure ferritin declining) followed by office visit in about 3 to 4 months. -Genetic testing for hemochromatosis if ferritin does not decline over the next few months. I spent a total of 60 minutes on the date of the service which included preparing to see the patient, [id number] patient care, completing clinical documentation, obtaining and/or reviewing separately obtained history, performing a medically appropriate examination, counseling and educating the patient/family/caregiver, ordering medications, tests, or procedures, communicating results to the patient/family/caregiver, and care coordination (not separately reported). Andres Galindo DO documented in this encounter [facility] Evaluation note Note Date & Type Note Facility documented in this encounter [facility] Evaluation note Note Date & Type Note Facility documented in this encounter [facility] Evaluation note Note Date & Type Note Facility documented in this encounter [facility] Evaluation note Note Date & Type Note Facility documented in this encounter [facility] Summary Purpose Family History No Family History Records Found Advance Directives No Advanced Directives Records Found Additional Source Comments Source Comments (unrecognize d section and content) In the event this informatio n is protected by the Federal Confidentiality of Alcohol and Drug Abuse Patient Records regulations: The Federal rules restrict any use of the information to criminally investigate or prosecute any alcohol or drug abuse patient.[facility] the event this information is protected by the Federal Confidentiality of Alcohol and Drug Abuse Patient Records regulations: The Federal rules restrict any use of the information to criminally investigate or prosecute any alcohol or drug abuse patient.[facility] the event this information is protected by the Federal Confidentiality of Alcohol and Drug Abuse Patient Records regulations: The Federal rules restrict any use of the information to criminally investigate or prosecute any alcohol or drug abuse patient.[facility] the event this information is protected by the Federal Confidentiality of Alcohol and Drug Abuse Patient Records regulations: The Federal rules restrict any use of the information to criminally investigate or prosecute any alcohol or drug abuse patient.[facility] the event this information is protected by the Federal Confidentiality of Alcohol and Drug Abuse Patient Records regulations: The Federal rules restrict any use of the information to criminally investigate or prosecute any alcohol or drug abuse patient.[facility] the event this information is protected by the Federal Confidentiality of Alcohol and Drug Abuse Patient Records regulations: The Federal rules restrict any use of the information to criminally investigate or prosecute any alcohol or drug abuse patient.[facility] the event this information is protected by the Federal Confidentiality of Alcohol and Drug Abuse Patient Records regulations: The Federal rules restrict any use of the information to criminally investigate or prosecute any alcohol or drug abuse patient.[facility] Care Teams (unrecognized sec tion and content) Director Wholesale Relationship Specialty Start Date End Date Mylene Frias [address] [facility] [address] [place] [address] PCP - General Family Medicine 07/17/22 Director Wholesale Relationship Specialty Start Date End Date Mylene Frias [address] [facility] [address] [place] [address] PCP - General Family Medicine 07/17/22 Director Wholesale Relationship Specialty Start Date End Date Mylene Frias [address] [facility] [address] [place] [address] PCP - General Family Medicine 07/17/22 Director Wholesale Relationship Specialty Start Date End Date Mylene Frias [address] [facility] [address] [place] [address] PCP - General Family Medicine 07/17/22 Reason for Visit (unrecogniz ed section and content) Reason Comments Follow Up Folic acid supplemen t Reason Comments Results Hgb testing INFORMATION SOURCE (unrecogn ized section and content) FOR RECORDS PERTAINING TO PATIENTS WHO ARE OR HAVE BEEN ENROLLED IN A CHEMICAL DEPENDENCY/SUBSTANCEABUSE PROGRAM, SOME INFORMATION MAY BE OMITTED. This clinical summary was aggregated from multiple sources. Caution should be exercised in using it in the provision of clinical care. This summary normalizes information from multiple sources, and as a consequence, information in this document may materially change the coding, format and clinical context of patient data. In addition, data may be omitted in some cases. CLINICAL DECISIONS SHOULD BE BASED ON THE PRIMARY CLINICAL RECORDS. [employer] [facility]. provides no warranty or guarantee of the accuracy or completeness of information in this document.
== END | disposition home or self-care (01) ==
LOC: OPBI 07:22
PROVIDERS: PCP Family Medicine; Referring Provider Nurse Practitioner Women's Health; Visit Provider Nurse Practitioner Women's Health
DX: Z12.31 Encounter for screening mammogram for malignant neoplasm of breast (principal)
CPT/HCPCS: 77063; 77067

== ENCOUNTER → 2024-09-19 | Outpatient (CLI) | payer OTHER, SELFPAY ==
[2024-09-19 18:00] LABS: Absolute Lymphocyte Count 2.74 X10^3/uL (0.83-4.51); Absolute Neutrophil Count 5.4 X10^3/uL (2.0-7.7); Basophil# 0.07 X10^3/uL; Basophil% 0.8 % (0-1); Differential Indicated SCAN CRITERIA MET; Eosinophil# 0.15 X10^3/uL; Eosinophils% 1.7 % (0-5); Hematocrit 29.8 % (37-47); Hemoglobin 9.1 g/dL (12.0-15.0); Lymphocyte # 2.74 X10^3/ul (0.83-4.51); Lymphocyte % 30.3 % (19-41); Mean Corp Hgb Conc 30.5 g/dL (32-36); Mean Corpuscular Hgb 18.6 pg (27.0-32.0); Mean Corpuscular Volume 60.9 fL (81-99); Mean Platelet Vol. 10.6 fl (6.2-12.0); Monocyte% 6.6 % (0-10); NRBC Flagged by Analyzer 0 % (0-5); Neutrophil # 5.44 X10^3/uL (2.7-7.7); Neutrophil % 60.2 % (47-70); POSITIVE MORPHOLOGY YES; Platelet Count 289 K/mm3 (150-450); RBC Distribution Width CV 15.5 % (11.6-14.6); RBC Distribution Width SD 32.7 fl (35.1-43.9); Red Blood Count 4.89 M/mm3 (4.2-5.4)
[2024-09-19 18:19] LABS: AST(SGOT) 18 U/L (15-37); Alanine Aminotransfer ALT/SGPT 27 U/L (13-56); Anion Gap 7 (5-15); BUN 16 mg/dL (7-18); BUN/Creat Ratio 22.2 RATIO (10-20); Chloride 107 mmol/L (98-107); Cholesterol 184 mg/dL (200); Creatinine, Serum 0.72 mg/dL (0.55-1.02); EST Glomerular Filtration Rate 87 mL/min (>60); Est Glom Filt Rate - Afr Amer 106 mL/min (>60); Glucose 99 mg/dL (74-106); High Density Lipoprotein 51 mg/dL; Potassium 3.6 mmol/L (3.5-5.1); Sodium Level 139 mmol/L (136-145); Triglycerides 215 mg/dL; Very Low Density Lipoprotein 43 mg/dL (5-40)
[2024-09-19 19:50] LABS: Differential Comment SCANNED; Hypochromasia 1+
[2024-09-19 19:52] LABS: Platelet Estimate ADEQUATE (ADEQ); Platelet Morphology LARGE
== END | disposition home or self-care (01) ==
LOC: MFPLAB 16:42
PROVIDERS: PCP Family Medicine; Visit Provider Family Medicine
DX: I10 Essential (primary) hypertension (principal); E78.5 Hyperlipidemia, unspecified; D56.0 Alpha thalassemia
CPT/HCPCS: 36415; 80048; 80061; 84443; 84450; 84460; 85025

== ENCOUNTER → 2024-12-29 | Outpatient (CLI) | payer OTHER, SELFPAY ==
[2025-01-03 19:07] LABS: HPV APTIMA, High Risk Negative (Negative)
== END | disposition home or self-care (01) ==
LOC: LABSPEC 15:07
PROVIDERS: PCP Family Medicine; Referring Provider Nurse Practitioner Women's Health; Visit Provider Nurse Practitioner Women's Health
DX: Z12.4 Encounter for screening for malignant neoplasm of cervix (principal)
CPT/HCPCS: 87624; 88175; G0145

== ENCOUNTER → 2025-01-09 | Outpatient (CLI) | payer OTHER, SELFPAY ==
--- NOTE | 2025-01-09 10:30 | BI_ITS ---
PROCEDURE: SCRN MAMM (CAD)W/LIZANDRO BILAT REASON FOR EXAM: F, Age 64 y/o, routine follow-up. No family history. TECHNIQUE: Bilateral screening digital breast tomosynthesis with 2D and 3D images. Computer aided detection. COMPARISON: Prior exam(s) dating back to January 07, 2024.. FINDINGS: There are scattered areas of fibroglandular density. Stable examination. No suspicious masses, areas of developing architectural distortion, or suspicious calcifications. BI/SCRN MAMM (CAD)W/LIZANDRO BILAT IMPRESSION: BI-RADS 1: NEGATIVE. RECOMMEND ANNUAL MAMMOGRAPHIC SCREENING. Follow-up code: Routine Follow-up The patient will be notified of the results by letter. Reading Location: [place] [address]
== END | disposition home or self-care (01) ==
LOC: OPBI 10:10
PROVIDERS: PCP Family Medicine; Referring Provider Nurse Practitioner Women's Health; Visit Provider Nurse Practitioner Women's Health
DX: Z12.31 Encounter for screening mammogram for malignant neoplasm of breast (principal)
CPT/HCPCS: 77063; 77067